=== PATIENT | female | born 1975 | race Caucasian/White ===

== ENCOUNTER 2017-02-22 21:52 | Emergency (ER) | payer SELFPAY ==
[~2017-02-22] VITALS: Ht 162.6 cm; Wt 81.6 kg
--- NOTE | 2017-02-22 22:05 | NUR ---
TO LOBBY , A/W JASPER LACEY, ALFRED ERMD NOTED
--- NOTE | 2017-02-22 23:46 | NUR ---
TO ER OF2
--- NOTE | 2017-02-22 23:48 | NUR ---
PATIENT IS A 41 Y/O FEMALE WHO PRESENTS TO THE ED C/O BODY ACHES AND COUGH. PT STATES, "I HAVE BEEN GETTING SICK FOR ABOUT 4-5 DAYS NOW." PT REPORTS 8/10 ACHING BODY PAIN THAT DOES NOT RADIATE. PT DENIES CP, SOB, RPEORTS NAUSEA/VOMITING DENIES DIARRHEA. PT REPORT COUGHING UP BLOOD. PT AAOX4, RR EVEN/UNLABORED. PT REPOSITIONED FOR COMFORT, BED IN LOWEST POSITION. ER MD DR. JONES NOTIFIED. WILL CONTINUE TO MONITOR.
[2017-02-23] MEDS ORDERED: KETOROLAC 60 MG/2 ML VIAL IM ONE (00:10)
[2017-02-23 00:38] VITALS: BP 135/80
--- NOTE | 2017-02-23 00:38 | NUR ---
Patient discharged with v/s stable. Written and verbal after care instructions given and explained. PATIENT alert, oriented and verbalized understanding of instructions. Ambulatory with steady gait. All questions addressed prior to discharge. ID band removed. Patient advised to follow up with PMD. Rx of PREDNISONE AND MOTRIN given. Patient educated on indication of medication including possible reaction and side effects. Opportunity to ask questions provided and answered.
== END 2017-02-23 00:38 | disposition home or self-care (01) ==
LOC: MED 21:52
DX: J11.1 Influenza due to unidentified influenza virus with other respiratory manifestations (principal); R05 Cough; J45.909 Unspecified asthma, uncomplicated
CPT/HCPCS: 96372; 99283; J1885